=== PATIENT | male | born 1980 | race American Indian/Alaskan Native ===

== ENCOUNTER 2017-08-24 21:04 | Emergency (ER) | payer BC ==
[2017-08-24 21:23] VITALS: TEMP 98.4; O2SAT 100; BMI 36.9
[2017-08-24 21:27] VITALS: RESP 18
[2017-08-24] MEDS ORDERED: Ipratropium 0.02% Inhal Soln (0.5 mg/2.5 ml) UD IH STA (21:53)
--- NOTE | 2017-08-24 21:57 | ED PDOC ---
Arrival/HPI - General Chief Complaint: Headache Time Seen by Provider: 08/24/17 21:25 Historian: Patient - History of Present Illness Narrative History of Present Illness (Text): 08/24/17 21:54 A 36 year old male, whose past medical history includes GERD, family medical history significant for PE (father from PE s/p a knee surgery), presents to the emergency department s/p a testosterone shot last week (08/18). The patient states that he suffered headaches for 3 days after the shot, but the symptoms have abated. for the past 2 days, he has been experiencing mid- axillary chest tightness. He notes that he goes to the gym 3-4 times a week. The patient denies fevers, chills, headache, dizziness, exertional exacerbation , shortness of breath, dyspnea on exertion, cough, abdominal pain, nausea, vomiting, diarrhea, back pain, neck pain, urinary/bowel changes, or any other complaint. Time/Duration: 1 week Symptom Onset: Sudden Symptom Course: Unchanged Activities at Onset: Light Context: Home Past Medical History - Provider Review Nursing Documentation Reviewed: Yes - Cardiac Hx Cardiac Disorders: No - Pulmonary Hx Respiratory Disorders: No - Neurological Hx Neurological Disorder: No - HEENT Hx HEENT Disorder: No - Renal Hx Renal Disorder: No - Endocrine/Metabolic Hx Endocrine Disorders: No - Hematological/Oncological Hx Blood Disorders: No - Integumentary Hx Dermatological Disorder: No - Musculoskeletal/Rheumatological Hx Musculoskeletal Disorders: No - Gastrointestinal Hx Gastrointestinal Disorders: Yes Other/Comment: acid reflux. - Genitourinary/Gynecological Hx Genitourinary Disorders: No - Psychiatric Hx Psychophysiologic Disorder: No Hx Substance Use: No Family/Social History - Physician Review Nursing Documentation Reviewed: Yes Family/Social History: Blood Clots (PE- father s/p knee surgery) Smoking Status: Never Smoked Hx Alcohol Use: No Hx Substance Use: No Allergies/Home Meds Allergies/Adverse Reactions: Allergies Penicillins Allergy (Verified 08/24/17 21:23) ANAPHYLAXIS Review of Systems - Physician Review All systems were reviewed & negative as marked: Yes - Review of Systems Constitutional: absent: Fevers, Night Sweats Respiratory: absent: SOB Cardiovascular: Chest Pain (Mid- Axillary Chest Tightness). absent: CHAVEZ Gastrointestinal: absent: Abdominal Pain, Stool Changes, Diarrhea, Nausea, Vomiting Genitourinary Male: absent: Urinary Output Changes Musculoskeletal: absent: Back Pain, Neck Pain Neurological: absent: Headache, Dizziness Physical Exam Vital Signs Reviewed: Yes Vital Signs Temp Pulse Resp BP Pulse Ox 08/24/17 21:23 98.4 F 90 18 138/77 100 08/24/17 21:22 98.4 F 90 19 138/77 100 Temperature: Afebrile Blood Pressure: Normal Pulse: Regular Respiratory Rate: Normal Appearance: Positive for: Well-Appearing, Non-Toxic, Comfortable Pain Distress: None Mental Status: Positive for: Alert and Oriented X 3 - Systems Exam Head: Present: Atraumatic, Normocephalic Pupils: Present: PERRL Extroacular Muscles: Present: EOMI Conjunctiva: Present: Normal Mouth: Present: Moist Mucous Membranes Neck: Present: Normal Range of Motion Respiratory/Chest: Present: Clear to Auscultation, Good Air Exchange. No: Respiratory Distress, Accessory Muscle Use Cardiovascular: Present: Regular Rate and Rhythm, Normal S1, S2. No: Murmurs Abdomen: Present: Normal Bowel Sounds. No: Tenderness, Distention, Peritoneal Signs Back: Present: Normal Inspection Upper Extremity: Present: Normal Inspection. No: Cyanosis, Edema Lower Extremity: Present: Normal Inspection. No: Edema Neurological: Present: GCS=15, CN II-XII Intact, Speech Normal Skin: Present: Warm, Dry, Normal Color. No: Rashes Psychiatric: Present: Alert, Oriented x 3, Normal Insight, Normal Concentration Medical Decision Making ED Course and Treatment: 08/24/17 21:59 Impression: A 36 year old male presents to the emergency department for 2 day duration mid- axillary chest tightness. Plan: -- EKG -- Chest X-ray -- Labs -- Pepcid, Motrin, Atrovent -- Urinalysis -- Reassess and disposition Progress Notes: EKG: Ordered, reviewed, and independently interpreted the EKG. Rate : 81 BPM Rhythm : NSR Interpretation : Borderline 1st degree Av block. No ischemic ST-T segments. No arrhythmogenic intervals. 08/24/17 22:47 After days of chest pain in a low risk athlete, 1 set of ce's sufficient to r/o WI, acs ofminimal suspicion, pt. PERC (-) and d-dimer (-), cxr (-) for pneumothorax/pericardial effusion . Chest pain likley due to gerd w/ superimposed anxiety. - Lab Interpretations Lab Results: 08/24/17 22:05 08/24/17 22:05 Lab Results 08/24/17 22:05: PT 11.8, INR 1.08, APTT 27.9, D-Dimer, Quantitative < 200 08/24/17 22:05: Sodium 137, Potassium 4.4, Chloride 99, Carbon Dioxide 29, Anion Gap 14, BUN 17, Creatinine 1.4, Est GFR ( Amer) > 60, Est GFR (Non- Af Amer) 58, Random Glucose 91, Calcium 9.4, Magnesium 1.9, Total Bilirubin 0.6 , AST 56, ALT 57 H, Alkaline Phosphatase 71, Lactate Dehydrogenase 610, Total Creatine Kinase 893 H, CK-MB (CK-2) Pending, CK-MB (CK-2) % Pending, Troponin I < 0.01, Total Protein 8.1, Albumin 4.3, Globulin 3.8, Albumin/Globulin Ratio 1.1 08/24/17 22:05: WBC 7.0, RBC 5.16, Hgb 16.0, Hct 46.1, MCV 89.3, MCH 31.0, MCHC 34.7, RDW 13.6, Plt Count 223, MPV 9.8, Gran % 60.5, Lymph % (Auto) 28.3, [place] % (Auto) 9.9 H, Eos % (Auto) 0.7 L, Baso % (Auto) 0.6, Gran # 4.20, Lymph # 2.0 , Stokes # 0.7 H, Eos # 0.1, Baso # 0.04 I have reviewed the lab results: Yes - RAD Interpretation Radiology Orders: 08/24/17 21:54 CHEST TWO VIEWS (PA/LAT) [RAD] Stat - EKG Interpretation Interpreted by ED Physician: Yes Type: 12 lead EKG - Medication Orders Current Medication Orders: Discontinued Medications Famotidine (Pepcid) 40 mg PO STAT STA Stop: 08/24/17 21:54 Ibuprofen (Motrin Tab) 600 mg PO STAT STA Stop: 08/24/17 21:54 Ipratropium [place] (Atrovent) 0.5 mg IH STAT STA Stop: 08/24/17 21:54 - Scribe Statement The provider has reviewed the documentation as recorded by the Scribe Janell Thrasher Provider Sarha Attestation: All medical record entries made by the Sarah were at my direction and personally dictated by me. I have reviewed the chart and agree that the record accurately reflects my personal performance of the history, physical exam, medical decision making, and the department course for this patient. I have also personally directed, reviewed, and agree with the discharge instructions and disposition. Disposition/Present on Arrival - Present on Arrival Any Indicators Present on Arrival: No History of DVT/PE: No History of Uncontrolled Diabetes: No Urinary Catheter: No History of Decub. Ulcer: No History Surgical Site Infection Following: None - Disposition Have Diagnosis and Disposition been Completed?: Yes Diagnosis: Bronchospasm, GERD (gastroesophageal reflux disease) Disposition Time: 22:50 Patient Plan: Discharge Condition: GOOD Discharge Instructions (ExitCare): Bronchospasm (DC), Gastroesophageal Reflux in Children (ED) Print Language: [place] Additional Instructions: Use the inhaler in the event of future chest tightness. And the pepcid as needed to control gerd like pain. Stay away from any exogenous hormones. Prescriptions: Famotidine [Pepcid] 20 mg PO BID PRN #10 tab PRN Reason: Dyspepsia Ipratropium [Atrovent HFA] 0.018 mg IH Q6 PRN #1 inhaler PRN Reason: Cough Forms: [facility] (Turkmen)
[2017-08-24 22:18] LABS: BASO # 0.04 K/mm3 (0.0-2.0); BASO % 0.6 % (0.0-3.0); EOS # 0.1 (0.0-0.7); EOS % 0.7 % (1.5-5.0); GRAN # 4.2 (1.4-6.5); GRAN % 60.5 % (50.0-68.0); HEMATOCRIT 46.1 % (42.0-52.0); LYMPH % 28.3 % (22.0-35.0); MEAN CELL VOLUME 89.3 fl (80.0-105.0); MEAN CORPUSCULAR HGB CONC 34.7 g/dl (31.0-37.0); MEAN PLATELET VOLUME 9.8 fl (7.0-11.0); MONO # 0.7 (0.1-0.6); MONO % 9.9 % (1.0-6.0); RED CELL DISTRIBUTION WIDTH 13.6 % (11.5-14.5)
[2017-08-24 22:34] LABS: D DIMER < 200 ng/mL (0-243); INR 1.08 (0.93-1.08); PARTIAL THROMBOPLASTIN TIME 27.9 Seconds (25.1-36.5)
[2017-08-24 22:38] LABS: ALB/GLOB RATIO 1.1 (1.1-1.8); ALKALINE PHOSPHATASE 71 U/L (38-126); ALT/SGPT 57 U/L (7-56); AST/SGOT 56 U/L (17-59); BILIRUBIN,TOTAL 0.6 mg/dL (0.2-1.3); BLOOD UREA NITROGEN 17 mg/dL (7-21); CALCIUM 9.4 mg/dL (8.4-10.5); CARBON DIOXIDE 29 mmol/L (21-33); CHLORIDE 99 mmol/L (98-107); GFR AFRICAN-AMERICAN > 60; GLUCOSE,RANDOM 91 mg/dL (70-110); MAGNESIUM 1.9 mg/dL (1.7-2.2); POTASSIUM 4.4 mmol/L (3.6-5.0); SODIUM 137 mmol/L (132-148); TOTAL PROTEIN 8.1 g/dL (5.8-8.3)
[2017-08-24 22:44] LABS: TROPONIN I < 0.01 ng/mL
[2017-08-24 23:20] VITALS: BP 127/70; PULSE 93
--- NOTE | 2017-08-25 09:17 | CARD ---
APPROVED REPORT EKG Measurement Heart [id number] <Conclusion> Normal sinus rhythm with sinus arrhythmia Normal ECG
--- NOTE | 2017-08-25 09:44 | RAD ---
HISTORY: rout med exam COMPARISON: No prior. TECHNIQUE: Chest PA and lateral FINDINGS: LUNGS: Minor bibasilar atelectasis. PLEURA: No significant pleural effusion identified. No pneumothorax apparent. CARDIOVASCULAR: There is a mild scoliosis of the mid lower thoracic spine felt be compensatory for scoliosis of the upper lumbar region. OSSEOUS STRUCTURES: VISUALIZED UPPER ABDOMEN: Normal. OTHER FINDINGS: None. IMPRESSION: Minor bibasilar atelectasis.
== END 2017-08-24 23:22 | disposition home or self-care (01) ==
LOC: ED 21:04
DX: J98.01 Acute bronchospasm (principal); K21.9 Gastro-esophageal reflux disease without esophagitis

== ENCOUNTER 2018-04-07 12:49 | Emergency (ER) | payer BC ==
[2018-04-07 12:50] VITALS: BMI 34.1
--- NOTE | 2018-04-07 13:22 | ED PDOC ---
Arrival/HPI - General Chief Complaint: Abdominal Pain Time Seen by Provider: 04/07/18 13:03 Historian: Patient - History of Present Illness Narrative History of Present Illness (Text): 04/07/18 13:19 37 year old male, with no significant past medical history, who presents to the emergency department complaining of intermittent RLQ pain x 3 weeks. Patient's notes patient started a new diet 3 weeks ago. Patient is currently pain free. Patient denies any fever, chills, chest pain, shortness of breath, nausea , vomiting, diarrhea, back pain, neck pain, headache, dizziness, or any other complaints. Time/Duration: < month (3 weeks) Symptom Onset: Gradual Symptom Course: Unchanged Activities at Onset: Light Context: Home Associated Symptoms (Text): 04/07/18 13:40 3 week history of intermittent right-sided abdominal pain. Patient started a new diet at that time. No nausea vomiting or diarrhea. No genitourinary symptoms. No back pain. No fever or chills. No injury or trauma. No travel or exposure. Patient is currently symptom free. Past Medical History - Provider Review Nursing Documentation Reviewed: Yes - Infectious Disease Hx of Infectious Diseases: None - Cardiac Hx Cardiac Disorders: No - Pulmonary Hx Respiratory Disorders: No - Neurological Hx Neurological Disorder: No - HEENT Hx HEENT Disorder: No - Renal Hx Renal Disorder: No - Endocrine/Metabolic Hx Endocrine Disorders: No - Hematological/Oncological Hx Blood Disorders: No - Integumentary Hx Dermatological Disorder: No - Musculoskeletal/Rheumatological Hx Musculoskeletal Disorders: No - Gastrointestinal Hx Gastrointestinal Disorders: Yes Hx Gastroesophageal Reflux: Yes - Genitourinary/Gynecological Hx Genitourinary Disorders: No - Psychiatric Hx Psychophysiologic Disorder: No Hx Substance Use: No - Anesthesia Hx Anesthesia: No Family/Social History - Physician Review Nursing Documentation Reviewed: Yes Family/Social History: Unknown Family HX Smoking Status: Never Smoked Hx Alcohol Use: No Hx Substance Use: No Allergies/Home Meds Allergies/Adverse Reactions: Allergies Penicillins Allergy (Verified 04/07/18 13:02) ANAPHYLAXIS Home Medications: Home Meds Medication Instructions Recorded Confirmed No Known Home Med 04/07/18 04/07/18 Review of Systems - Physician Review All systems were reviewed & negative as marked: Yes - Review of Systems Constitutional: Normal Respiratory: Normal. absent: SOB, Cough Cardiovascular: Normal. absent: Chest Pain Gastrointestinal: Abdominal Pain (RLQ pain). absent: Diarrhea, Nausea, Vomiting Genitourinary Male: Normal. absent: Dysuria, Frequency, Hematuria Musculoskeletal: Normal. absent: Back Pain, Neck Pain Physical Exam Vital Signs Reviewed: Yes Vital Signs Temp Pulse Resp BP Pulse Ox 04/07/18 13:10 98.4 F 56 L 18 139/78 100 Temperature: Afebrile Blood Pressure: Normal Pulse: Regular Respiratory Rate: Normal Appearance: Positive for: Well-Appearing, Non-Toxic, Comfortable Pain Distress: None Mental Status: Positive for: Alert and Oriented X 3 - Systems Exam Head: Present: Atraumatic, Normocephalic Pupils: Present: PERRL Extroacular Muscles: Present: EOMI Neck: Present: Normal Range of Motion Respiratory/Chest: Present: Clear to Auscultation, Good Air Exchange. No: Respiratory Distress, Accessory Muscle Use Cardiovascular: Present: Regular Rate and Rhythm, Normal S1, S2. No: Murmurs Abdomen: Present: Tenderness (mild RLQ tenderness), Normal Bowel Sounds. No: Distention, Peritoneal Signs, Rebound, Guarding Back: Present: Normal Inspection Upper Extremity: Present: Normal Inspection. No: Cyanosis, Edema Lower Extremity: Present: Normal Inspection. No: Edema Neurological: Present: GCS=15, CN II-XII Intact, Speech Normal, Motor Func Grossly Intact Skin: Present: Warm, Dry, Normal Color. No: Rashes Psychiatric: Present: Alert Medical Decision Making ED Course and Treatment: 04/07/18 13:23 Impression: 37 year old male presents to the emergency department complaining of RLQ pain x 3 weeks. Plan: -- Abd/Pelvis CT -- Labs -- UA -- Reassess and disposition Progress Notes: - Lab Interpretations Lab Results: 04/07/18 13:12 04/07/18 13:12 Lab Results 04/07/18 13:12: Urine Color Yellow, Urine Appearance Clear, Urine pH 6.0, Ur Specific [place] 1.015, Urine Protein Negative, Urine Glucose (UA) Negative, Urine Ketones Negative, Urine Blood Trace-intact H, Urine Nitrate Negative, Urine Bilirubin Negative, Urine Urobilinogen 0.2, Ur Leukocyte Esterase Negative , Urine RBC 0 - 2, Urine WBC 2 - 5, Ur Epithelial Cells 1 - 3, Urine Bacteria Few 04/07/18 13:12: Sodium 142, Potassium 3.9, Chloride 100, Carbon Dioxide 30, Anion Gap 16, BUN 12, Creatinine 1.2, Est GFR ( Amer) > 60, Est GFR (Non- Af Amer) > 60, Random Glucose 90, Calcium 9.6, Magnesium 1.7, Total Bilirubin 0.9, AST 43, ALT 39, Alkaline Phosphatase 66, Total Protein 8.6 H, Albumin 4.8, Globulin 3.8, Albumin/Globulin Ratio 1.3, Lipase 44 04/07/18 13:12: WBC 5.8, RBC 5.59, Hgb 17.1, Hct 48.2, MCV 86.2 D, MCH 30.6, MCHC 35.5, RDW 13.3, Plt Count 257, MPV 9.9, Gran % 49.1 L, Lymph % (Auto) 42.9 H, [place] % (Auto) 6.4 H, Eos % (Auto) 0.7 L, Baso % (Auto) 0.9, Gran # 2.84, Lymph # (Auto) 2.5, [place] # (Auto) 0.4, Eos # (Auto) 0.0, Baso # (Auto) 0.05 - RAD Interpretation Radiology Orders: 04/07/18 13:14 ABD & PELVIS W/O PO OR IV CONT [CT] Stat CT scan of the abdomen and pelvis is read by the radiologist shows cholelithiasis, otherwise within normal limits. Operator Supply: Radiologist - Scribe Statement The provider has reviewed the documentation as recorded by the Scribmaru White All medical record entries made by the Scribe were at my direction and personally dictated by me. I have reviewed the chart and agree that the record accurately reflects my personal performance of the history, physical exam, medical decision making, and the department course for this patient. I have also personally directed, reviewed, and agree with the discharge instructions and disposition. Disposition/Present on Arrival - Present on Arrival Any Indicators Present on Arrival: No History of DVT/PE: No History of Uncontrolled Diabetes: No Urinary Catheter: No History of Decub. Ulcer: No History Surgical Site Infection Following: None - Disposition Have Diagnosis and Disposition been Completed?: Yes Diagnosis: Cholelithiasis, Abdominal pain Disposition: HOME/ ROUTINE Disposition Time: 14:19 Patient Plan: Discharge Condition: GOOD Discharge Instructions (ExitCare): Gallstones Additional Instructions: Follow-up with PMD for surgical referral. Follow-up in the ER as needed. Forms: [email or web address] (Gibraltarian)
[2018-04-07 13:24] VITALS: RESP 18; TEMP 98.4; O2SAT 100
[2018-04-07 13:40] LABS: BASO # 0.05 K/mm3 (0.0-2.0); BASO % 0.9 % (0.0-3.0); EOS % 0.7 % (1.5-5.0); GRAN # 2.84 (1.4-6.5); GRAN % 49.1 % (50.0-68.0); HEMOGLOBIN 17.1 g/dL (14.0-18.0); LYMPH # 2.5 (1.2-3.4); LYMPH % 42.9 % (22.0-35.0); MEAN CELL VOLUME 86.2 fl (80.0-105.0); MEAN CORPUSCULAR HEMOGLOBIN 30.6 pg (25.0-35.0); MEAN CORPUSCULAR HGB CONC 35.5 g/dl (31.0-37.0); MEAN PLATELET VOLUME 9.9 fl (7.0-11.0); MONO # 0.4 (0.1-0.6); MONO % 6.4 % (1.0-6.0); RBC 5.59 10^6/uL (3.5-6.1); RED CELL DISTRIBUTION WIDTH 13.3 % (11.5-14.5); URINE BILIRUBIN NEGATIVE (NEGATIVE); URINE BLOOD TRACE-INTACT (NEGATIVE); URINE GLUCOSE (UA) NEGATIVE (NEGATIVE); URINE LEUKOCYTE ESTERASE NEGATIVE Leu/uL (NEGATIVE); URINE PROTEIN NEGATIVE mg/dL (<30 mg/dL); URINE UROBILINOGEN 0.2 E.U./dL (<1 E.U./dL); WHITE BLOOD COUNT 5.8 10^3/ul (4.5-11.0)
[2018-04-07 13:43] LABS: URINE APPEARANCE CLEAR (CLEAR); URINE COLOR YELLOW (YELLOW)
[2018-04-07 13:51] LABS: ALB/GLOB RATIO 1.3 (1.1-1.8); ALBUMIN 4.8 g/dL (3.0-4.8); ALT/SGPT 39 U/L (7-56); AST/SGOT 43 U/L (17-59); BLOOD UREA NITROGEN 12 mg/dL (7-21); CALCIUM 9.6 mg/dL (8.4-10.5); GFR AFRICAN-AMERICAN > 60; GFR NON-AFRICAN AMERICAN > 60; LIPASE 44 U/L (23-300)
[2018-04-07 13:55] LABS: URINE BACTERIA FEW (NEG); URINE RBC 0 - 2 /hpf (0-2)
--- NOTE | 2018-04-07 14:13 | CT ---
PROCEDURE: CT Abdomen and Pelvis without intravenous contrast HISTORY: RLQ pain COMPARISON: None. TECHNIQUE: Unenhanced study. Neither oral nor intravenous contrast administered. Sensitivity and specificity for acute inflammatory processes limited by the absence of oral and intravenous contrast. Radiation dose: Total exam DLP = 587.87 mGy-cm. This CT exam was performed using one or more of the following dose reduction techniques: Automated exposure control, adjustment of the mA and/or kV according to patient size, and/or use of iterative reconstruction technique. FINDINGS: LOWER THORAX: Unremarkable. LIVER: Unremarkable. No gross lesion or ductal dilatation. GALLBLADDER AND BILE DUCTS: Cholelithiasis without CT evidence of acute cholecystitis. PANCREAS: Unremarkable. No gross lesion or ductal dilatation. SPLEEN: Unremarkable. ADRENALS: Unremarkable. No mass. KIDNEYS AND URETERS: Unremarkable. No hydronephrosis. No solid mass. VASCULATURE: Unremarkable. No aortic aneurysm. BOWEL: Constipation without fecal impaction or obstruction. APPENDIX: Unremarkable. Normal appendix. PERITONEUM: Unremarkable. No free fluid. No free air. LYMPH NODES: Unremarkable. No enlarged lymph nodes. BLADDER: Unremarkable. REPRODUCTIVE: Unremarkable. BONES: No acute fracture. OTHER FINDINGS: None. IMPRESSION: Cholelithiasis without CT evidence of acute cholecystitis. Additional benign and/or incidental findings described above.
[2018-04-07 14:38] VITALS: BP 138/80; PULSE 58
== END 2018-04-07 14:38 | disposition home or self-care (01) ==
LOC: ED 12:49
DX: K80.20 Calculus of gallbladder without cholecystitis without obstruction (principal); R10.31 Right lower quadrant pain